=== PATIENT | female | born 1975 | race American Indian/Alaskan Native ===

== ENCOUNTER 2020-07-22 11:40 | Outpatient (CLI) | payer MEDICAID ==
--- NOTE | 2020-07-23 15:24 | Magnetic Resonance Report ---
Bilateral breast MRI with and without contrast. History: New diagnosis right breast cancer Procedure: Axial T1 and T2-weighted fat-sat images were obtained precontrast. 15 cc MultiHance was i njected intravenously and serial axial T1-weighted images with fat saturation were obtained postcontr ast. 3-D MIP projections, Kinetic analysis and subtraction imaging was utilized to evaluate. A [employer] 8 channel breast coil was utilized for image acquisition. Comparison: Bilateral mammogram 06/26/2020 Findings: Background level of enhancement is mild. Prominent bulky adenopathy is seen in the right axilla consistent with metastatic involvement. A larg e node is seen in the anterior axilla without a fatty hilum and with a short axis diameter of 19 mm. This directly abuts the pectoralis major muscle. Another large node is seen deep in the axilla with a short axis diameter of 2.7 cm and without a fatty hilum. No abnormal bone marrow signal is seen. No significant chest wall enhancement is noted. Right breast: The known huge mass in the lower inner left breast is again seen with prominent skin in volvement and protrusion medially and inferiorly. This mass has a maximal diameter of 5.9 cm and show s prominent abnormal enhancement. This abnormal enhancement extends to the pectoralis musculature wit hout definite invasion though the fascia could be involved. The mass lies as close as 4.2 cm from the nipple. Prominent generalized skin thickening is seen throughout much of the breast. I do not see wi melissa separate areas of suspicious enhancement within the right breast however. Left breast: Mild benign-appearing stippled and vascular enhancement is noted. No suspicious lesions are seen. Impression: 1. Huge known malignant mass with prominent skin involvement and possible pectoralis muscle fascial i nvolvement is seen. No separate areas of suspicious enhancement are seen within the right breast. 2. No suspicious areas are seen within the left breast. 3. Prominent adenopathy in the right axilla consistent with metastatic disease. BIRADS: 6: Known diagnosis breast cancer Signer Name: Gerald Morrissey MD Signed: 07/23/2020 3:19 PM Workstation Name: [id number]
== END 2020-07-22 11:41 | disposition home or self-care (01) ==
LOC: SPVIMAG 11:40
PROVIDERS: ATTEND Surgery
DX: C50.311 Malignant neoplasm of lower-inner quadrant of right female breast (principal)
CPT/HCPCS: A9577; C8908; 77049

== ENCOUNTER 2020-12-09 13:10 | Outpatient (CLI) | payer MEDICAID ==
--- NOTE | 2020-12-09 14:19 | Ultrasound Report ---
RIGHT DIGITAL DIAGNOSTIC MAMMOGRAM WITH CAD CONVENTIONAL, 12/09/2020 RIGHT COMPLETE BREAST ULTRASOUND CLINICAL INFORMATION / INDICATION: Recent personal history of right breast cancer, judging response t o chemotherapy TECHNIQUE: Digital right mammographic imaging was performed. Complete ultrasound of all four (4) quad rants was performed. This examination was interpreted with the benefit of Computer-Aided Detection (C AD) analysis. COMPARISON: Bilateral mammogram 06/26/2020, MR breast 07/22/2020 FINDINGS: Breast Density: The breasts are heterogeneously dense, which may obscure small masses. MAMMOGRAPHIC FINDINGS: The mass in the lower inner quadrant posteriorly is markedly less prominent th an on prior study in June. Borders are now ill-defined and measurements are therefore difficult. Maximal likely measurement is 2.6 cm compared to 9.6 cm previously. No other significant changes are seen. ULTRASOUND FINDINGS: Complete sonographic evaluation of all 4 quadrants and retroareolar region was p erformed. Irregular mass is seen roughly at the 4:00 position, 5 cm from the nipple, with an ovoid sh ape measuring now 3.5 x 1.2 x 3.2 cm. No additional breast masses are seen. Thickened abnormal appear ing nodes are again seen in the right axilla as was noted on the prior MR including one appearing to have an internal clip from a biopsy. IMPRESSION: Significant improvement in right breast malignant mass Follow up recommendation: Excision when surgically appropriate BI-RADS Category 6: Known Biopsy-Proven Malignancy. A "normal" or negative report should not discourage follow up or biopsy of a clinically significant f inding. A written summary of these findings will be mailed to the patient. The patient will be entered into a mammography reporting system which will generate a reminder letter for the patient's next appointmen t at the appropriate interval. According to the [employer], yearly mammograms are recommended starting at age 40 and continuing as long as a woman is in good health. Breast MRI is recommended for women with an rosemary roximately 20-25% or greater lifetime risk of breast cancer, including women with a strong family his tory of breast or ovarian cancer and women who have been treated for Hodgkin's disease. Signer Name: Gerald Morrissey MD Signed: 12/09/2020 2:14 PM Workstation Name: [id number]
== END 2020-12-09 13:11 | disposition home or self-care (01) ==
LOC: SPVWC 13:10
PROVIDERS: ATTEND Surgery
DX: C50.211 Malignant neoplasm of upper-inner quadrant of right female breast (principal); N63.14 Unspecified lump in the right breast, lower inner quadrant; R59.0 Localized enlarged lymph nodes

== ENCOUNTER 2020-12-31 12:32 | Outpatient (CLI) | payer MEDICAID ==
--- NOTE | 2021-01-02 07:59 | Magnetic Resonance Report ---
Bilateral breast MRI with and without contrast. History: MALIGNANT NEOPLASM OF LOWER INNER QUAD OF RT BREAST, follow-up with chemotherapy Procedure: Axial T1 and T2-weighted fat-sat images were obtained precontrast. 18 cc Clariscan was in jected intravenously and serial axial T1-weighted images with fat saturation were obtained postcontra st. 3-D MIP projections, Kinetic analysis and subtraction imaging was utilized to evaluate. A [employer] 8 channel breast coil was utilized for image acquisition. Comparison: MR breast 07/22/2020, right mammogram 12/09/2019, right breast ultrasound 12/09/2019, bilate ral mammogram 06/26/2020 Findings: Background level of enhancement is mild. Significant improvement is seen in the previously abnormal right axillary lymph nodes. Small abnormal appearing nodes continue but these are much reduced in size from previous study. Largest nodes now h as a short axis diameter of approximately 7 mm compared to 2.3 cm previously. No definitely abnormal nodes are seen on the left. No abnormal bone marrow signal is seen. Right breast: Marked improvement in the appearance of the right breast is seen. The huge upper right breast mass seen previously to extend from the skin surface to the chest wall and measuring 5.9 cm in diameter now is much reduced with maximal diameter now of 3.5 cm and significant reduction in bulk a nd volume. There is still abnormal enhancement. This does not clearly extend to the skin surface now. There is continued possible involvement of pectoralis fascia posteriorly. No additional right breast lesions are seen. Left breast: No suspicious lesions or significant changes are noted. Impression: As seen on ultrasound and mammogram recently, there is marked reduction in size of the ri ght breast mass following chemotherapy. Significant reduction in right axillary gloria prominence is a lso seen. BIRADS: 6: Known diagnosis breast cancer Signer Name: Gerald Morrissey MD Signed: 01/02/2021 7:55 AM Workstation Name: [id number]
== END 2020-12-31 12:33 | disposition home or self-care (01) ==
LOC: SPVIMAG 12:32
PROVIDERS: ATTEND Surgery
DX: C50.311 Malignant neoplasm of lower-inner quadrant of right female breast (principal); R59.0 Localized enlarged lymph nodes
CPT/HCPCS: A9575; C8908; 77049

== ENCOUNTER 2021-01-12 06:24 | Observation (INO) | payer MEDICAID ==
--- NOTE | 2021-01-09 11:08 | Anesthesia Consultation ---
Anesthesia Consult and Med Hx Date of service: 01/12/21 - Airway Anesthetic Teeth Evaluation: Dentures (full upper and lower) ROM Head & Neck: Adequate Mental/Hyoid Distance: Adequate Mallampati Class: Class III Intubation Access Assessment: Possibly Difficult - Pulmonary Exam CTA: Yes - Cardiac Exam Cardiac Exam: RRR - Pre-Operative Health Status ASA Pre-Surgery Classification: ASA3 Proposed Anesthetic Plan: General Nerve Block: PECS II vs ES - Pulmonary Hx Smoking: Yes (THC only) Hx Respiratory Symptoms: No - Cardiovascular System Hx Hypertension: No Hx Heart Attack/AMI: No Hx Percutaneous Transluminal Coronary Angioplasty (PTCA): No - Central Nervous System CVA: No - Gastrointestinal Hx Ulcer: Yes (recently started on pantoprazole) Hx Gastroesophageal Reflux Disease: Yes - Endocrine Hx Renal Disease: No Hx Liver Disease: No Hx Insulin Dependent Diabetes: No Hx Non-Insulin Dependent Diabetes: No Hx Thyroid Disease: No - Hematic Hx Anemia: Yes (prior hx blood transfusions) - Other Systems Hx Substance Use: Yes (frequently THC) Hx Cancer: Yes (breast ca, last dose chemo 12/09/20) - Additional Comments Anesthesia Medical History Comments: No hx anesthetic complications. Labs recently done at oncology office; will request results.
[~2021-01-12 06:24] MED LIST: ACETAMINOPHEN 500 MG TAB PO SCH; CELECOXIB 200 MG CAP PO NR; GABAPENTIN 300 MG CAP PO NR; LACTATED RINGERS 1,000 ML IV SCH; MIDAZOLAM 2 MG/2 ML INJ IV NR; SCOPOLAMINE TRANSDERMAL PATCH 72 HR TD NR; ceFAZolin/Water 2 GM/20 ML 2 GM/20 ML SYRINGE IV NR; fentaNYL 100 MCG/2 ML INJ IV PRN
[2021-01-12] MEDS ORDERED: METHYLENE BLUE 50 MG/10 ML AMP ONE (07:11)
[2021-01-12] MEDS ORDERED: BUPIVACAINE/PF (0.25%) 2.5 MG/ML 30 ML VIAL INFILTRATI ONE ×2 (07:18→07:53)
--- NOTE | 2021-01-12 07:18 | Anesthesia Day of Surgery ---
Anesthesia Day of Surgery - Day of Surgery Patient Examined: Yes Patient H&P Reviewed: Yes Patient is NPO: Yes
[2021-01-12] MEDS ORDERED: dexAMETHasone 4 MG/ML VIAL ONE (07:19)
[2021-01-12] MEDS ORDERED: ONDANSETRON 4 MG/2 ML INJ IV PRN ×2 (07:30→13:55)
[2021-01-12] MEDS ORDERED: HYDROmorphone 1 MG/1 ML INJ IV PRN ×2 (07:30)
[2021-01-12] MEDS ORDERED: ePHEDrine SULFATE 50 MG/1 ML INJ ONE (07:39)
[2021-01-12] MEDS ORDERED: propofoL 200 MG/20 ML VIAL IV ONE (07:40)
[2021-01-12] MEDS ORDERED: fentaNYL 100 MCG/2 ML INJ ONE (07:42)
[2021-01-12] MEDS ORDERED: SUCCINYLCHOLINE CHLORIDE 200 MG/10 ML INJ MDV ONE (07:42)
[2021-01-12] MEDS ORDERED: dexAMETHasone 20 MG/5 ML VIAL ONE (07:42)
[2021-01-12] MEDS ORDERED: ONDANSETRON 4 MG/2 ML INJ ONE (07:42)
[2021-01-12] MEDS ORDERED: NEOSTIGMINE 10MG/10 ML INJ MDV ONE (07:42)
[2021-01-12] MEDS ORDERED: ROCURONIUM 50 MG/5 ML INJ IV ONE (07:42)
[2021-01-12] MEDS ORDERED: PHENYLEPHRINE/NS 1,000 MCG/10 ML SYRINGE (OR USE) IV ONE (07:42)
[2021-01-12] MEDS ORDERED: GLYCOPYRROLATE 0.4 MG/2 ML INJ ONE (07:42)
[2021-01-12] MEDS ORDERED: LIDOCAINE MPF (2%) 20 MG/1 ML VIAL 5 ML ONE (07:42)
[2021-01-12] MEDS ORDERED: SODIUM CHLORIDE P/F VIAL 10 ML 10 ML ONE (08:27)
[2021-01-12] MEDS ORDERED: HYDROmorphone 1 MG/1 ML INJ ONE ×2 (08:28→10:56)
[2021-01-12] MEDS ORDERED: ESMOLOL 100 MG/10 ML INJ IV ONE (08:31)
[2021-01-12] MEDS ORDERED: METHYLENE BLUE 50 MG/10 ML AMP IV ONE (09:08)
[2021-01-12] MEDS ORDERED: WATER FOR IRRIG STERILE 1,500 ML BOTTLE IR ONE ×2 (09:08)
[2021-01-12] MEDS ORDERED: SODIUM CHLORIDE 0.9% 50 ML VIAL IV ONE (09:09)
[2021-01-12] MEDS ORDERED: LACTATED RINGERS 1,000 ML ONE (13:29)
--- NOTE | 2021-01-12 13:54 | Short Stay Summary ---
Short Stay Documentation Date of service: 01/12/21 - History H&P: obtained from office - Allergies and Medications Current Medications: Allergies No Known Allergies Allergy (Unverified 01/07/21 14:16) Home Medications Medication Instructions Recorded Confirmed Last Taken Type Cholestyramine (with Sugar) 4 gm PO DAILY 01/09/21 01/09/21 Unknown History [Cholestyramine Packet] Dicyclomine [Bentyl] 10 mg PO QID 01/09/21 01/12/21 01/05/21 08:00 History HYDROcodone/APAP 5-325 [[place] 1 each PO Q6HR PRN 01/09/21 01/12/21 01/09/21 08:00 History 5/325] Pantoprazole [Protonix] 40 mg PO QDAY 01/09/21 01/12/21 01/12/21 07:20 History cephALEXin [Keflex] 500 mg PO Q12HR 01/09/21 01/12/21 Unknown History Active Medications Acetaminophen (Acetaminophen 500 Mg Tab) 1,000 mg PO PREOP ABBY Stop: 01/12/21 21:00 Last Admin: 01/12/21 07:20 Dose: 1,000 mg Documented by: Celecoxib (Celecoxib 200 Mg Cap) 200 mg PO PREOP NR Stop: 01/12/21 21:00 Last Admin: 01/12/21 07:20 Dose: 200 mg Documented by: Fentanyl (Fentanyl 100 Mcg/2 Ml Inj) 100 mcg IV ONCE PRN PRN Reason: sedation for nerve block Stop: 01/12/21 21:00 Last Admin: 01/12/21 07:55 Dose: 100 mcg Documented by: Gabapentin (Gabapentin 300 Mg Cap) 300 mg PO PREOP NR Stop: 01/12/21 21:00 Last Admin: 01/12/21 07:20 Dose: 300 mg Documented by: Hydromorphone HCl (Hydromorphone 1 Mg/1 Ml Inj) 0.25 mg IV Q10MIN PRN PRN Reason: Pain, Moderate (4-6) Stop: 01/12/21 19:00 Hydromorphone HCl (Hydromorphone 1 Mg/1 Ml Inj) 0.5 mg IV Q10MIN PRN PRN Reason: Pain , Severe (7-10) Stop: 01/12/21 19:00 Cefazolin Sodium (Ancef/Sterile Water 2 Gm/20 Ml) 2 gm in 20 mls @ 80 mls/hr IV PREOP NR; Protocol Stop: 01/12/21 23:59 Lactated Ringer's (Lactated Ringers) 1,000 mls @ 100 mls/hr IV DIRECT ABBY Stop: 01/12/21 23:59 Last Admin: 01/12/21 07:30 Dose: 100 mls/hr Documented by: Midazolam HCl (Midazolam 2 Mg/2 Ml Inj) 2 mg IV PREOP NR Stop: 01/12/21 21:00 Last Admin: 01/12/21 07:54 Dose: 2 mg Documented by: Ondansetron HCl (Ondansetron 4 Mg/2 Ml Inj) 4 mg IV ONCE PRN PRN Reason: Nausea And Vomiting Stop: 01/12/21 17:00 Scopolamine (Scopolamine Transdermal Patch 72 Hr) 1 each TD PREOP NR Stop: 01/12/21 21:00 Last Admin: 01/12/21 07:20 Dose: 1 each Documented by: - Brief post op/procedure progress note Date of procedure: 01/12/21 Pre-op diagnosis: Right breast cancer lower inner quadrant Post-op diagnosis: same Procedure: Left total mastectomy; right total mastectomy with SLNB followed by immediate right axillary lymph node dissection Anesthesia: GETA Findings: Bilateral mastectomy; right mastectomy with clip present; right SLNs positive for malignancy on frozen section followed by ALND Surgeon: DONNELL PAIGE Estimated blood loss: other (150-200 cc) Pathology: list (above) Specimen disposition: to lab Condition: stable - Disposition Condition at discharge: Good Disposition: [id number]/TX-[id number] SHRT-TRM GEN HOSP IP Short Stay Discharge Plan Activity: other (no heavy lifting) Diet: regular Wound: keep clean and dry (wear breast binder) Follow up with: DONNELL PAIGE MD [Staff Physician] - 7 Days
[2021-01-12] MEDS ORDERED: oxyCODONE /ACETAMINOPHEN 5-325MG TAB PO PRN (13:55)
[2021-01-12] MEDS ORDERED: ACETAMINOPHEN 325 MG TAB PO PRN (13:55)
[2021-01-12] MEDS ORDERED: diphenhydrAMINE 25 MG CAP PO PRN (13:55)
[2021-01-12] MEDS ORDERED: METOCLOPRAMIDE 10 MG TAB PO PRN (13:55)
[2021-01-12] MEDS ORDERED: HYDROmorphone 2 MG TAB PO PRN (13:55)
[2021-01-12] MEDS ORDERED: LACTATED RINGERS 1,000 ML IV SCH (14:00)
--- NOTE | 2021-01-12 14:08 | Operative Report ---
Operative Report Operative Report: Date of Service: January 12, 2021 Preoperative diagnosis: Right breast cancer of the lower inner quadrant Postoperative diagnosis: Same Procedure: Right total mastectomy with sentinel lymph node biopsy followed by ALND and left total mastectomy Surgeon: Sherita Lake M.D. Laboratory Engineer: Chelsey Barone M.D. Anesthesia: Gen. Findings: Right breast clip present within right total mastectomy. 7 sentinel lymph nodes identified and at least one positive for malignancy on frozen section of pathology and proceeded with right axillary lymph node dissection; palpable right axillary lymphadenpathy; biopsy site changes of axillary lymph node Complications: None Drains: 2 19 [place] CHANDLER drains right; 1 19 [place]anese CHANDLER drain left Estimated blood loss: 150-200 cc Disposition: PACU in good condition Indications for operative procedure: This is a 45-year-old lady with stage III right breast cancer of the lower inner quadrant, [id number] ER positive. She completed neoadjuvant chemotherapy and recommendations were to proceed with a right mastectomy with SLNB and probable ALND. She wished to proceed with a prophylactic left mastectomy; recommended delayed plastic surgery given advanced stage right breast cancer. She wished to proceed with the above procedure. Prior palpable right breast cancer mass from the 3-6:00 positions, initially 7-9 cm prior to chemotherapy and now 3-4 cm, persistent abnormal appearing axillary lymph nodes. She understood the role of adjuvant radiation therapy and possibility of additional chemotherapy. Procedure in detail: Aneshtesia placed bilateral pectoral block. The patient was taken to the operating room and was placed supine. Gen. anesthesia was administered. The right nipple was injected with radioisotope and 1 cc of methylene blue. Bilateral chest and axillas were prepped and draped in the normal sterile operative fashion. Timeout was performed. Typical mastectomy i ncision markings were made for the left chest and right chest encompassing known area of cancer at 5:00 position at [facility]-prior tumor close to skin. Attention was taken toward the left breast first. First began raising of the superior flap to the level of the clavicle superiorly and posteriorly to the pectoralis muscle. Followed by raising of the medial flap to the level of the sternum and posteriorly to the pectoralis muscle. Followed by raising of the lateral flap to the level of the latissimus dorsi muscle and taken down posteriorly. Followed by raising of the inferior flap to the level of the inframammary fold taken posterior to the pectoralis muscle. The mastectomy/breast was removed from the pectoralis muscle without incident. The specimen was appropriately marked and sent to pathology. Hemostasis was obtained. The chest wall was irrigated. One 19 [employer]anese CHANDLER drain placed. The subcutaneous tissues were approximated and closed using 3-0 interrupted Vicryl and skin closed using running 4-0 Monocryl followed by dermabond. Attention was taken towards the right breast. Ultrasound used as well to identify known area of cancer 5:00 position at [facility] and abnormal axillary lymph nodes. A gamma probe was inserted into the axilla to identify the sentinel lymph node location with uptake noted. Skin markings were made to include the area of known cancer with incision going towards the IMF. A skin incision was made with a 10 blade knife and dissection taken down to the subcutaneous tissues. First began raising of the superior flap to the level of the clavicle superiorly and posteriorly to the pectoralis muscle; port present and unharmed. Followed by raising of the medial flap to the level of the sternum and posteriorly to the pectoralis muscle. Followed by raising of the lateral flap to the level of the latissimus dorsi muscle and taken down posteriorly. The gamma probe was inserted into the axilla, the axillary fascia was opened and 7 axillary sentinel lymph nodes were identified that were dissected free and sent to pathology. Patient with positive axillary lymph node prior to chemotherapy. Axillary lymph node was sent to pathology with findings positive for malignancy noted on frozen section. Then proceeded with raising of the inferior flap to the level of the inframammary fold taken posterior to the pectoralis muscle. The mastectomy/breast was removed from the pectoralis muscle without incident. The specimen was appropriately marked and sent to radiology with findings of breast clip present and sent to pathology Attention was then taken towards the right axilla. First began opening of the axillary fascia further. The lattismus dorsi muscle was identified and followed superiorly. Then proceeded with identification of the axillary vein followed by identification of the thoracodorsal bundle and long thoracic nerve. Axillary lymph nodes were then removed from the above boundaries with the aid of the bovie cautery in a sweeping-like motion and then sent to pathology. Axillary lymph nodes from level I and II were removed. Both nerves were identified and unharmed. Palpable axillary lymphadenopathy was noted. Hemostasis was noted. The chest wall was irrigated and suctioned. Hemostasis was obtained. Two 19 [employer]anese CHANDLER drains placed (one in axilla and then chest). The subcutaneous tissues were approximated and closed using 3-0 interrupted Vicryl and skin closed using running 4-0 Monocryl followed by dermabond. She tolerated surgery very well and was awaken from anesthesia and transported to PACU in good condition.
[2021-01-12] MEDS ORDERED: NITROGLYCERIN 2% OINT 1 GM TP NR ×2 (14:17→14:35)
--- NOTE | 2021-01-12 17:20 | Post Anesthesia Evaluation ---
- Post Anesthesia Evaluation Patient Participated: Yes Airway Patent: Yes Stable Respiratory Function: Yes Nausea/Vomiting: No Temp > 96.8F: Yes Pain Manageable: Yes Adequeate Hydration: Yes Anesthesia Complications: No Block Receding Appropriately: Yes Patient on Ventilator: No
--- NOTE | 2021-01-12 17:28 | Mammography Report ---
BREAST SPECIMEN RADIOGRAPH HISTORY: Right breast biopsy FINDINGS/IMPRESSION: The submitted radiograph or radiographs demonstrate(s) the presence of dense soft tissue which contai ns biopsy clip. No localization wire is present.. Signer Name: Madison Lema MD Signed: 01/12/2021 5:24 PM Workstation Name: [id number]
[2021-01-12] MEDS: MORPHINE 2 MG/1 ML INJ IV PRN (20:20)
[2021-01-12] MEDS: DOCUSATE SODIUM 100 MG CAP PO SCH (22:23)
[2021-01-13] MEDS: MORPHINE 2 MG/1 ML INJ IV PRN ×2 (00:37→04:31)
[2021-01-13] MEDS: DOCUSATE SODIUM 100 MG CAP PO SCH (09:55)
--- NOTE | 2021-01-13 12:25 | Progress Note ---
Assessment and Plan This is a 45-year-old lady with stage III right breast cancer of right lower inner quadrant; postop day 1 left total mastectomy and right modified radical mastectomy. No acute events overnight. 1. Pain in good control. 2. Bilateral chest incisions healing well. 3. CHANDLER drain education. 4. OOB to hallway. 5. D/C planning for later today. Subjective Date of service: 01/13/21 Principal diagnosis: Stage III right breast cancer lower inner quadrant Interval history: This is a 45-year-old lady with stage III right breast cancer of right lower inner quadrant; postop day 1 left total mastectomy and right modified radical mastectomy. No acute events overnight. Objective - Constitutional Vitals: Vital Signs - 12hr 01/13/21 01/13/21 01/13/21 00:52 04:11 07:57 Temperature 98.2 F 98.3 F 98.5 F Pulse Rate 72 76 Respiratory 16 20 18 Rate Blood Pressure 96/65 97/59 109/72 O2 Sat by Pulse 98 95 Oximetry General appearance: Present: no acute distress - Neck Neck: supple, normal ROM - Respiratory Respiratory effort: normal - Breasts Breasts: other (bilateral chest incisions c/d/i; no hematoma; skin well perfused) - Cardiovascular Rhythm: regular Extremities: no ischemia, pulses intact, pulses symmetrical, No edema, normal temperature, normal color, Full ROM - Gastrointestinal General gastrointestinal: Present: soft, non-tender, non-distended Rectal Exam: deferred - Genitourinary Female genitourinary: deferred - Integumentary Integumentary: clear, warm, dry - Musculoskeletal Musculoskeletal: strength equal bilaterally - Neurologic Neurologic: CNII-XII intact, moves all extremities - Psychiatric Psychiatric: appropriate mood/affect, intact judgment & insight, memory intact, cooperative Medications & Allergies - Medications Allergies/Adverse Reactions: Allergies No Known Allergies Allergy (Unverified 01/07/21 14:16) Home Medications: Home Medications Medication Instructions Recorded Confirmed Last Taken Type Cholestyramine (with Sugar) 4 gm PO DAILY 01/09/21 01/09/21 Unknown History [Cholestyramine Packet] Dicyclomine [Bentyl] 10 mg PO QID 01/09/21 01/12/21 01/05/21 08:00 History HYDROcodone/APAP 5-325 [[place] 1 each PO Q6HR PRN 01/09/21 01/12/21 01/09/21 08:00 History 5/325] Pantoprazole [Protonix] 40 mg PO QDAY 01/09/21 01/12/21 01/12/21 07:20 History cephALEXin [Keflex] 500 mg PO Q12HR 01/09/21 01/12/21 Unknown History oxyCODONE /ACETAMINOPHEN [Percocet 1 tab PO Q6HR PRN #15 tablet 01/12/21 Unknown Rx 5/325] Active Medications: Generic Name Dose Route Start Last Admin Trade Name Freq PRN Reason Stop Dose Admin Acetaminophen 650 mg 01/12/21 13:55 Acetaminophen 325 Mg Tab PO Q6H PRN Pain MILD(1-3)/Fever >100.5/LEES Diphenhydramine HCl 25 mg 01/12/21 13:55 Diphenhydramine 25 Mg Cap PO Q8H PRN Itching Docusate Sodium 100 mg 01/12/21 22:00 01/13/21 09:55 Docusate Sodium 100 Mg Cap PO 100 mg BID ABBY Administration Hydromorphone HCl 2 mg 01/12/21 13:55 Hydromorphone 2 Mg Tab PO Q6H PRN Pain , Severe (7-10) Lactated Ringer's 1,000 mls @ 125 mls/hr 01/12/21 14:00 01/12/21 17:25 Lactated Ringers IV 125 mls/hr DIRECT ABBY Administration Metoclopramide HCl 10 mg 01/12/21 13:55 Metoclopramide 10 Mg Tab PO Q6H PRN Nausea And Vomiting Morphine Sulfate 2 mg 01/12/21 13:56 01/13/21 04:31 Morphine 2 Mg/1 Ml Inj IV 2 mg Q4H PRN Administration Pain, Moderate (4-6) Ondansetron HCl 4 mg 01/12/21 13:55 Ondansetron 4 Mg/2 Ml Inj IV Q8H PRN N/V unrelieved by Regvladimir Oxycodone/Acetaminophen 1 tab 01/12/21 13:55 01/13/21 09:55 Oxycodone /Acetaminophen 5-325mg Tab PO 1 tab Q6H PRN Administration Pain, Moderate (4-6) Sodium Chloride 10 ml 01/12/21 13:55 Sodium Chloride 0.9% 10 Ml Flush Syringe IV PRN PRN LINE FLUSH
[2021-01-13 13:59] VITALS: BP 111/71
== END 2021-01-13 14:35 | disposition home or self-care (01) ==
LOC: OR 06:24 → OB 13:55
PROVIDERS: ADMIT Surgery; ATTEND Surgery
DX: C50.311 Malignant neoplasm of lower-inner quadrant of right female breast (principal); Z20.822 Contact with and (suspected) exposure to COVID-19; Z79.899 Other long term (current) drug therapy
CPT/HCPCS: 19303; 38525; 38792; 76098; 78800; 88307; 88309; 88331; 88333; 88342; 96374; 96375; 96376; A9541; G0378; J0330; J0690; J1100; J1170; J2250; J2270; J2370; J2405; J2704; J2710; J3010; J7120; Q9968; U0003